=== PATIENT | male | born 2000 | race American Indian/Alaskan Native ===

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

== ENCOUNTER 2020-07-09 17:55 | Emergency (ER) | payer MEDICAID, OTHER ==
[2020-07-09 18:13] VITALS: BP 157/107; PULSE 61
[2020-07-09] MEDS ORDERED: Lidocaine 2% with EPINEPHrine 1:200,000 20 ML SDV INJECT ONE (18:25)
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
== END 2020-07-09 18:57 | disposition home or self-care (01) ==
LOC: DL.ED 17:55
DX: S81.812A Laceration without foreign body, left lower leg, initial encounter (principal); J45.909 Unspecified asthma, uncomplicated; W26.8XXA Contact with other sharp object(s), not elsewhere classified, initial encounter
CPT/HCPCS: 12001; 99282

== ENCOUNTER 2021-01-13 23:22 | Emergency (ER) | payer OTHER ==
--- NOTE | 2021-01-14 | EDM.PDOC ---
ED HPI GENERAL MEDICAL PROBLEM - General Chief Complaint: Respiratory Problem Stated Complaint: ALLERGIC REACTION/ASTHMA ?SWELLING THROAT Time Seen by Provider: 01/13/21 23:49 Source of Information: Reports: Patient, RN, RN Notes Reviewed History Limitations: Reports: No Limitations - History of Present Illness INITIAL COMMENTS - FREE TEXT/NARRATIVE: Patient presents to the ED via personal vehicle with complaints of sore throat, cough, and shortness of breath. The patient states these symptoms began two days ago and have progressively worsened in that time. He attest to a history of asthma and feels his Albuterol inhaler helps with the shortness of breath, but is concerned as the feeling returns. Additionally, he attest to fatigue, headache, and congestion, for which he has taken pseudoephedrine. He denies fever, shaking chills, muscle aches, chest pain, palpitations, nausea, vomiting, or diarrhea. The patient denies tobacco use, but notes he is frequently exposed to second hand smoke. He denies alcohol or recreational drug use. Throat Pain Score (Numeric/FACES): 7 - Related Data Allergies Allergy/AdvReac Type Severity Reaction Status Date / Time No Known Allergies Allergy Verified 01/13/21 23:30 Home Meds: Home Meds Albuterol Sulfate [Proair Hfa] 1 - 2 puff IH ASDIRECTED PRN 11/27/16 [History] Montelukast [Singulair] 10 mg PO ASDIRECTED 11/27/16 [History] Past Medical History HEENT History: Reports: None Cardiovascular History: Reports: None Respiratory History: Reports: Asthma Gastrointestinal History: Reports: None Genitourinary History: Reports: None Musculoskeletal History: Reports: None Neurological History: Reports: None Psychiatric History: Reports: None Endocrine/Metabolic History: Reports: None Hematologic History: Reports: None Immunologic History: Reports: None Oncologic (Cancer) History: Reports: None Dermatologic History: Reports: None Social & Family History - Family History Family Medical History: No Pertinent Family History - Tobacco Use Tobacco Use Status *Q: Never Tobacco User Second Hand Smoke Exposure: Yes - Caffeine Use Caffeine Use: Reports: Energy Drinks - Recreational Drug Use Recreational Drug Use: No ED ROS GENERAL - Review of Systems Review Of Systems: Comprehensive ROS is negative, except as noted in HPI. ED EXAM, GENERAL - Physical Exam Exam: See Below Exam Limited By: No Limitations General Appearance: Alert, No Apparent Distress Eye Exam: Bilateral Eye: Conjunctival Injection, EOMI, Periorbital Changes (Mild edema to inferior orbit), PERRL (3mm) Ears: Normal External Exam, Normal Canal, Hearing Grossly Normal. No: Normal TMs (Injected TM, bilaterally) Ear Exam: Bilateral Ear: Auricle Normal, Canal Normal, TM Red Nose: Nasal Tenderness, Clear Rhinorrhea Throat/Mouth: Normal Voice, No Airway Compromise, Inflammation (Erythema to posterior oropharynx) Head: Atraumatic, Normocephalic Neck: Supple, Lymphadenopathy (L) (Anterior cervical chain). No: Lymphadenopathy (R), Thyromegaly Respiratory/Chest: No Respiratory Distress, Lungs Clear, Normal Breath Sounds, No Accessory Muscle Use, Chest Non-Tender Cardiovascular: Normal Peripheral Pulses, Regular Rate, Rhythm, No Edema, No Gallop, No JVD, No Murmur, No Rub Peripheral Pulses: 2+: Radial (L), Radial (R) GI/Abdominal: Normal Bowel Sounds, Soft, Non-Tender, No Distention, No Mass, Pelvis Stable (Male) Exam: Deferred Rectal (Males) Exam: Deferred Back Exam: Normal Inspection, Full Range of Motion Extremities: Normal Inspection, Normal Range of Motion, Non-Tender, Normal Capillary Refill, No Pedal Edema Neurological: Alert, Oriented, CN II-XII Intact, Normal Cognition, Normal Gait, No Motor/Sensory Deficits Psychiatric: Normal Affect, Normal Mood Skin Exam: Warm, Dry, Intact, Normal Color, No Rash. No: Ecchymosis, Erythema, Mottled, Pallor, Petechiae Course - Vital Signs Last Recorded V/S: Last Vital Signs Temp 97.9 F 01/13/21 23:25 Pulse 87 01/13/21 23:25 Resp 20 01/13/21 23:25 BP 146/93 H 01/13/21 23:25 Pulse Ox 98 01/13/21 23:25 - Orders/Labs/Meds Orders: Active Orders 24 hr Category Date Time Status CULTURE STREP A CONFIRMATION [RM] Stat Lab 01/14/21 00:15 Results STREP SCRN A RAPID W CULT CONF [RM] Stat Lab 01/14/21 00:15 Results Labs: Laboratory Tests 01/13/21 01/13/21 01/13/21 Range/Units 23:55 23:55 23:55 WBC 12.1 H (5.0-10.0) 10^3/uL RBC 5.90 (4.6-6.2) 10^6/uL Hgb 17.5 D (14.0-18.0) g/dL Hct 48.9 (40.0-54.0) % MCV 82.9 D (80-100) fL MCH 29.7 (27.0-34.0) pg MCHC 35.8 H (33.0-35.0) g/dL Plt Count 228 (150-450) 10^3/uL Neut % (Auto) 72.8 (42.2-75.2) % Lymph % (Auto) 12.4 L (20.5-50.1) % [place] % (Auto) 8.7 H (2-8) % Eos % (Auto) 5.6 H (1.0-3.0) % Baso % (Auto) 0.5 (0.0-1.0) % Sodium 141 (136-145) mmol/L Potassium 3.8 (3.5-5.1) mmol/L Chloride 101 (98-107) mmol/L Carbon Dioxide 28 (21-32) mmol/L Anion Gap 15.8 H (7-13) mEq/L BUN 8 (7-18) mg/dL Creatinine 0.96 (0.70-1.30) mg/dL Est Cr Clr Drug Dosing TNP Estimated GFR (MDRD) > 60 BUN/Creatinine Ratio 8.3 (No establ ref range) Glucose 86 (74-99) mg/dL Lactic Acid 1.0 (0.4-2.0) mmol/L Calcium 9.2 (8.5-10.1) mg/dL Total Bilirubin 0.6 (0.2-1.0) mg/dL AST 24 (15-37) U/L ALT 56 (16-63) U/L Alkaline Phosphatase 98 (46-116) U/L C-Reactive Protein < 0.2 (0.0-0.9) mg/dL Total Protein 8.4 H (6.4-8.2) g/dL Albumin 4.2 (3.4-5.0) g/dL Globulin 4.2 Albumin/Globulin Ratio 1.0 Influenza Type A RNA (NEGATIVE) Influenza Type B RNA (NEGATIVE) SARS-CoV-2 RNA (ARIADNE) (NEGATIVE) 01/14/21 Range/Units 00:15 WBC (5.0-10.0) 10^3/uL RBC (4.6-6.2) 10^6/uL Hgb (14.0-18.0) g/dL Hct (40.0-54.0) % MCV (80-100) fL MCH (27.0-34.0) pg MCHC (33.0-35.0) g/dL Plt Count (150-450) 10^3/uL Neut % (Auto) (42.2-75.2) % Lymph % (Auto) (20.5-50.1) % [place] % (Auto) (2-8) % Eos % (Auto) (1.0-3.0) % Baso % (Auto) (0.0-1.0) % Sodium (136-145) mmol/L Potassium (3.5-5.1) mmol/L Chloride (98-107) mmol/L Carbon Dioxide (21-32) mmol/L Anion Gap (7-13) mEq/L BUN (7-18) mg/dL Creatinine (0.70-1.30) mg/dL Est Cr Clr Drug Dosing Estimated GFR (MDRD) BUN/Creatinine Ratio (No establ ref range) Glucose (74-99) mg/dL Lactic Acid (0.4-2.0) mmol/L Calcium (8.5-10.1) mg/dL Total Bilirubin (0.2-1.0) mg/dL AST (15-37) U/L ALT (16-63) U/L Alkaline Phosphatase (46-116) U/L C-Reactive Protein (0.0-0.9) mg/dL Total Protein (6.4-8.2) g/dL Albumin (3.4-5.0) g/dL Globulin Albumin/Globulin Ratio Influenza Type A RNA Negative (NEGATIVE) Influenza Type B RNA Negative (NEGATIVE) SARS-CoV-2 RNA (ARIADNE) Negative (NEGATIVE) Meds: Medications Discontinued Medications Generic Name Dose Route Start Last Admin Trade Name Freq PRN Reason Stop Dose Admin Prednisone 40 mg 01/14/21 01:09 01/14/21 01:16 Prednisone PO 01/14/21 01:10 40 mg ONETIME ONE Administration - Radiology Interpretation Free Text/Narrative:: [facility] [place] [facility] Final Radiology Report Call: [phone] assistance Online chat: [email or web address] Name: FARRUKH MANCILLA Age: 20Years M Date: 01/13/2021 SSN: -- : 2000 Study: CR CHEST 2V Requesting Physician: Ashley Zepeda Images: 2 Addl Studies: Provided Clinical History: Shortness of breath for 24 hours; Hx asthma Contrast: Contrast Medium: Contrast Amount: Contrast Method: CONFIDENTIALITY STATEMENT This report is intended only for use by the referring physician, and only in accordance with law. If you received this in error, call [phone]. Page 1 of 1 PROCEDURE INFORMATION: Exam: XR Chest Exam date and time: 01/13/2021 11:47 PM Age: 20 years old Clinical indication: Shortness of breath; Additional info: Shortness of breath for 24 hours; HX asthma TECHNIQUE: Imaging protocol: XR of the chest Views: 2 views. COMPARISON: No relevant prior studies available. FINDINGS: Lungs: The lungs are symmetric, well expanded and clear. Pleural spaces: There are no pleural effusions. There is no pneumothorax. Heart/Mediastinum: The heart size is normal as are the mediastinal and hilar contours. The pulmonary vessels are normal. Bones/joints: No acute osseous pathology is identified. IMPRESSION: No acute cardiopulmonary disease process identified. Thank you for allowing us to participate in the care of your patient. Dictated and Authenticated by: Keri Morris MD 01/14/2021 12:08 AM Central Time ([place] & [place]) - Re-Assessments/Exams Free Text/Narrative Re-Assessment/Exam: 01/14/21 Given history and physical exam, will test for COVID and Strep A. CXR unremarkable for acute processes; no infiltrate noted. CBC remarkable for elevated WBC at 12.1; no shift present. COVID, Influenza, and Strep negative. Discussed findings of lab work, imaging, and examination with patient. Discussed care for asthma exacerbation and viral URI. Red flag signs and symptoms which would warrant reevaluation discussed. Patient verbalized understanding and agreement with the plan of care. Departure - Departure Time of Disposition: 01:10 Disposition: Home, Self-Care 01 Condition: Good Clinical Impression: Viral upper respiratory infection Exacerbation of asthma Qualifiers: Asthma severity: mild Asthma persistence: intermittent Qualified Code(s): J45.21 - Mild intermittent asthma with (acute) exacerbation - Discharge Information *PRESCRIPTION DRUG MONITORING PROGRAM REVIEWED*: Not Applicable *COPY OF PRESCRIPTION DRUG MONITORING REPORT IN PATIENT ALEKSANDR: Not Applicable Instructions: Asthma, Adult, Viral Respiratory Infection, [id number] Referrals: Luciano Kebede [Primary Care Provider] - Forms: ED Department Discharge Additional Instructions: Rx: Prednisone 1.) Continue with your rescue inhaler, as needed, for shortness of breath. 2.) You may use Chloraseptic spray or warm salt water gargles for sore throat. 3.) Drink plenty of water to stay hydrated and keep secretions thin. 4.) You may trial [id number] cough and congestion medicine. 5.) Follow up with your primary care provider with any fever, shaking chills, or difficulty breathing that does not improve with albuterol inhaler. Sepsis Event Note (ED) - Evaluation Sepsis Screening Result: No Definite Risk - Focused Exam Vital Signs: Vital Signs Temp Pulse Resp BP Pulse Ox 01/13/21 23:25 97.9 F 87 20 146/93 H 98 - My Orders Last 24 Hours: My Active Orders 01/14/21 00:15 CULTURE STREP A CONFIRMATION [RM] Stat STREP SCRN A RAPID W CULT CONF [RM] Stat - Assessment/Plan Last 24 Hours: My Active Orders 01/14/21 00:15 CULTURE STREP A CONFIRMATION [RM] Stat STREP SCRN A RAPID W CULT CONF [RM] Stat
--- NOTE | 2021-01-14 00:09 | CR ---
PROCEDURE INFORMATION: Exam: XR Chest Exam date and time: 01/13/2021 11:47 PM Age: 20 years old Clinical indication: Shortness of breath; Additional info: Shortness of breath for 24 hours; HX asthma TECHNIQUE: Imaging protocol: XR of the chest Views: 2 views. COMPARISON: No relevant prior studies available. FINDINGS: Lungs: The lungs are symmetric, well expanded and clear. Pleural spaces: There are no pleural effusions. There is no pneumothorax. Heart/Mediastinum: The heart size is normal as are the mediastinal and hilar contours. The pulmonary vessels are normal. Bones/joints: No acute osseous pathology is identified. IMPRESSION: No acute cardiopulmonary disease process identified.
[2021-01-14 00:21] LABS: ANION GAP 15.8 mEq/L (7-13); CHLORIDE,CL 101 mmol/L (98-107); SODIUM,NA 141 mmol/L (136-145)
[2021-01-14 01:00] LABS: CORONAVIRUS COVID-19 NAA NEGATIVE (NEGATIVE)
[2021-01-14] MEDS ORDERED: predniSONE 20 MG Tab PO ONE (01:09)
[2021-01-14 01:27] VITALS: BP 146/93; PULSE 87
== END 2021-01-14 01:23 | disposition home or self-care (01) ==
LOC: DL.ED 23:22
DX: J45.21 Mild intermittent asthma with (acute) exacerbation (principal); J06.9 Acute upper respiratory infection, unspecified; Z20.822 Contact with and (suspected) exposure to COVID-19; Z77.22 Contact with and (suspected) exposure to environmental tobacco smoke (acute) (chronic)
CPT/HCPCS: 0240U; 36415; 71046; 80053; 83605; 85025; 86140; 87081; 87430; 99283; 99285; J7512

== ENCOUNTER 2021-08-31 21:42 | Emergency (ER) | payer OTHER ==
[2021-08-31] MEDS ORDERED: Acetaminophen/HYDROcodone 325-10 MG Tab PO ONE (21:43)
[2021-08-31] MEDS ORDERED: Iopamidol 612 MG/ML 100 ML Bottle IVPUSH ONE (21:55)
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
[2021-08-31 22:29] LABS: ANION GAP 17.4 mEq/L (7-13); CHLORIDE,CL 103 mmol/L (98-107); SODIUM,NA 139 mmol/L (136-145)
[2021-08-31 22:31] VITALS: BP 132/78; PULSE 94
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
[2021-08-31] MEDS ORDERED: Acetaminophen/HYDROcodone 325-10 MG Tab ONE (23:13)
== END 2021-08-31 23:25 | disposition home or self-care (01) ==
LOC: DL.ED 21:42
DX: S20.211A Contusion of right front wall of thorax, initial encounter (principal); Y04.0XXA Assault by unarmed brawl or fight, initial encounter
CPT/HCPCS: 36415; 71260; 74177; 80053; 82150; 85025; 99285-25; A9270-GY; Q9967